=== PATIENT | male | born 1965 | race Caucasian/White ===

== ENCOUNTER 2022-05-11 10:09 | Outpatient (CLI) | payer OTHER, SELFPAY ==
[2022-05-11 14:01] LABS: Cholesterol* 137 mg/dL (90-199)
[2022-05-11 14:02] LABS: HDL Cholesterol* 25 mg/dL (>=40); LDL Cholesterol Calculated 80 mg/dL (<100); Triglycerides* 159 mg/dL (40-149)
== END 2022-05-11 10:10 | disposition home or self-care (01) ==
LOC: LONREF 10:10
PROVIDERS: PCP Family Medicine; Visit Provider Family Medicine
DX: E78.5 Hyperlipidemia, unspecified (principal)
CPT/HCPCS: 80061

== ENCOUNTER 2023-06-01 14:30 | Outpatient (RCR) | payer BC, SELFPAY | END 2023-07-16 14:26 | disposition home or self-care (01) | PROVIDERS: PCP Family Medicine; Visit Provider Orthopaedic Surgery Sports Medicine | DX: M51.36 Other intervertebral disc degeneration, lumbar region (principal); M54.16 Radiculopathy, lumbar region; M54.50 Low back pain, unspecified; M79.604 Pain in right leg; Z74.09 Other reduced mobility; R29.898 Other symptoms and signs involving the musculoskeletal system; Z51.89 Encounter for other specified aftercare | CPT/HCPCS: 97110; 97140; 97161 ==

== ENCOUNTER 2023-06-28 08:24 | Outpatient (CLI) | payer BC, SELFPAY | END 2023-06-28 08:25 | disposition home or self-care (01) | PROVIDERS: PCP Family Medicine; Visit Provider Family Medicine | DX: E78.5 Hyperlipidemia, unspecified (principal); E88.810 Metabolic syndrome; Z80.42 Family history of malignant neoplasm of prostate; Z12.5 Encounter for screening for malignant neoplasm of prostate; Z13.29 Encounter for screening for other suspected endocrine disorder | CPT/HCPCS: 80048; 80061; 84443; G0103 ==

== ENCOUNTER 2024-07-14 14:10 | Outpatient (CLI) | payer BC, SELFPAY | END 2024-07-14 14:11 | disposition home or self-care (01) | PROVIDERS: PCP Family Medicine; Visit Provider Family Medicine | DX: E88.810 Metabolic syndrome (principal); E03.9 Hypothyroidism, unspecified; Z80.42 Family history of malignant neoplasm of prostate; Z12.5 Encounter for screening for malignant neoplasm of prostate | CPT/HCPCS: 80053; 84443; G0103 ==

== ENCOUNTER 2024-07-27 15:08 | Outpatient (CLI) | payer BC, SELFPAY | END 2024-07-27 15:09 | disposition home or self-care (01) | LOC: MRI 15:10 | PROVIDERS: PCP Family Medicine; Visit Provider Orthopaedic Surgery Sports Medicine | DX: M25.511 Pain in right shoulder (principal); M75.101 Unspecified rotator cuff tear or rupture of right shoulder, not specified as traumatic; M75.01 Adhesive capsulitis of right shoulder; M19.011 Primary osteoarthritis, right shoulder; M25.411 Effusion, right shoulder | CPT/HCPCS: 73221 ==

== ENCOUNTER 2024-09-05 14:45 | Outpatient (RCR) | payer BC, SELFPAY | END 2025-01-03 23:59 | disposition home or self-care (01) | PROVIDERS: PCP Family Medicine; Visit Provider Orthopaedic Surgery Sports Medicine | DX: M75.01 Adhesive capsulitis of right shoulder (principal); Z51.89 Encounter for other specified aftercare | CPT/HCPCS: 97110; 97140; 97161 ==